=== PATIENT | male | born 1960 | race Caucasian/White ===

== ENCOUNTER 2016-11-20 08:18 | Day surgery (SDC) | payer BC, OTHER ==
[~2016-11-20 08:18] MED LIST: Bupivacaine 25%/EPINEPHrine/PF 30 ML ONE
[2016-11-20] MEDS ORDERED: Lactated Ringers 1,000 ML IV SCH ×2 (09:00→10:00)
--- NOTE | 2016-11-20 09:00 | PCM.PREANE ---
Preanesthetic Assessment - Anesthesia/Transfusion/Family Hx Anesthesia History: Prior Anesthesia Without Reaction Family History of Anesthesia Reaction: No Transfusion History: No Prior Transfusion(s) Intubation History: Unknown - Review of Systems General: No Symptoms Pulmonary: No Symptoms Cardiovascular: No Symptoms Gastrointestinal: No Symptoms Neurological: No Symptoms Other: Reports: None - Physical Assessment O2 Sat by Pulse Oximetry: 95 Respiratory Rate: 16 Vital Signs: Last Vital Signs Temp 36.2 C 11/20/16 08:50 Pulse 53 L 11/20/16 08:50 Resp 16 11/20/16 08:50 BP 140/64 11/20/16 08:50 Pulse Ox 95 11/20/16 08:50 Height: 1.78 m Weight: 117.934 kg ASA Class: 3 Mental Status: Alert & Oriented x3 Airway Class: Mallampati = 2 Dentition: Reports: Normal Dentition, Davie(s) (few, none at the front) Thyro-Mental Finger Breadths: 3 Mouth Opening Finger Breadths: 2 ROM/Head Extension: Full Lungs: Clear to Auscultation, Normal Respiratory Effort Cardiovascular: Regular Rate, Regular Rhythm - Allergies Allergies/Adverse Reactions: Allergies Allergy/AdvReac Type Severity Reaction Status Date / Time No Known Allergies Allergy Verified 11/17/16 13:03 - Blood Blood Available: No - Anesthesia Plan Pre-Op Medication Ordered: None - Acknowledgements Anesthesia Type Planned: MAC Pt an Appropriate Candidate for the Planned Anesthesia: Yes Alternatives and Risks of Anesthesia Discussed w Pt/Guardian: Yes Pt/Guardian Understands and Agrees with Anesthesia Plan: Yes PreAnesthesia Questionnaire HEENT History: Reports: Other (See Below) Other HEENT History: wears glasses, has eddie hearing aides but does not wear them Cardiovascular History: Reports: High Cholesterol, Hypertension Respiratory History: Reports: Sleep Apnea Other Respiratory History: recently diagnosed with mesothelioma, uses CPAP Gastrointestinal History: Reports: GERD Musculoskeletal History: Reports: Back Pain, Chronic, Osteoarthritis, Other ( See Below) (right rotator cuff tear) Endocrine/Metabolic History: Reports: Obesity/BMI 30+ - Past Surgical History Head Surgeries/Procedures: Reports: None Male Surgical History: Reports: Vasectomy Dermatological Surgical History: Reports: Other (See Below) (I@D of neck abscess ) - SUBSTANCE USE Smoking Status *Q: Current Every Day Smoker Tobacco Use Within Last Twelve Months: Cigarettes Days Per Week of Alcohol Use: 7 Number of Drinks Per Day: 2 Total Drinks Per Week: 14 Recreational Drug Use History: No - HOME MEDS Home Medications: Home Meds Aspirin [Grant Aspirin] 81 mg PO DAILY 11/17/16 [History] Cyanocobalamin (Vitamin B-12) [Vitamin B-12] 1 tab PO DAILY 11/17/16 [History] Doxazosin [Cardura] 4 mg PO DAILY 11/17/16 [History] Gabapentin [Neurontin] 300 mg PO BID 11/17/16 [History] Glucosamine/D3/Boswellia Alejandra [Osteo Bi-Flex Tablet] 1 tab PO DAILY 11/17/16 [ History] Losartan/Hydrochlorothiazide [Losartan-HCTZ 100-25 MG] 1 tab PO DAILY 11/17/16 [ History] Naproxen Sodium [Aleve] 2 tab PO BID 11/17/16 [History] Simvastatin [Zocor] 40 mg PO DAILY 11/17/16 [History] - CURRENT (IN HOUSE) MEDS Current Meds: Current Medications Hydrocodone Bitart/Acetaminophen ([place] 325-5 Mg) 1 tab PO Q4H PRN PRN Reason: Pain Bupivacaine HCl/Epinephrine Bitart (Marcaine 0.25%/Epinephrine 1:200,000) 10 ml INJECT ONETIME ONE Stop: 11/20/16 10:01 Cefazolin Sodium/Dextrose 2 gm (/ Premix) 50 mls @ 100 mls/hr IV ONETIME ONE Stop: 11/20/16 10:29 Lactated Ringer's (Ringers, Lactated) 1,000 mls @ 125 mls/hr IV ASDIRECTED [facility] Discontinued Medications Lactated Ringer's (Ringers, Lactated) 1,000 mls @ 125 mls/hr IV ASDIRECTED [facility] Bupivacaine HCl/Epinephrine Bitart (Sensorc Mpf 0.25%-Epi [id number]) Confirm Administered Dose 30 mls @ as directed .ROUTE .STK-MED ONE Stop: 11/20/16 07:21
[2016-11-20] MEDS ORDERED: Lidocaine 2% 5 ML SDV ONE (09:36)
[2016-11-20] MEDS ORDERED: Midazolam 1 MG/ML 2 ML SDV ONE (09:36)
[2016-11-20] MEDS ORDERED: Propofol 200 MG/20 ML SDV ONE (09:36)
[2016-11-20] MEDS ORDERED: fentaNYL 100 MCG/2 ML SDV ONE (09:36)
[2016-11-20] MEDS ORDERED: Acetaminophen/HYDROcodone 325-5 MG Tab PO PRN (10:00)
[2016-11-20] MEDS ORDERED: Bupivacaine 0.25%/EPINEPHrine 1:200,000 10 ML SDV INJECT ONE (10:00)
[2016-11-20] MEDS ORDERED: ceFAZolin 2 GM in Premix Bag 1 BAG IV ONE (10:00)
--- NOTE | 2016-11-20 12:36 | PCM.OPNOTE ---
- General Post-Op/Procedure Note Date of Surgery/Procedure: 11/20/16 Operative Procedure(s): left carpal tunnel release Pre Op Diagnosis: left carpal tunnel syndrome Post-Op Diagnosis: Same Anesthesia Technique: Local, MAC Primary Surgeon: Veena Dorman Receptionist Secretary: Lisa Cohen Complications: None Condition: Good Free Text/Narrative:: Intake & Output 11/19/16 11/20/16 11/20/16 23:59 07:59 15:59 Intake Total 900 Balance 900 [id number]
[2016-11-20 12:59] VITALS: BP 96/60
--- NOTE | 2016-11-20 18:50 | OR ---
SURGEON: KARTHIK SHRESTHA MD DATE OF PROCEDURE: 11/20/2016 PREOPERATIVE DIAGNOSIS: Left carpal tunnel syndrome. POSTOPERATIVE DIAGNOSIS: Left carpal tunnel syndrome. PROCEDURE: Left carpal tunnel release. INDICATIONS: The patient is seen today in evaluation for left carpal tunnel syndrome. Risks and benefits of left carpal tunnel release were discussed with him and he was in agreement to proceed. Risks were including, but not limited to, bleeding, infection, damage to underlying or overlying structures, possible need for future interventions. PROCEDURE IN DETAIL: After informed consent was obtained and placed on the chart, the patient was brought to the operating theater and laid in the supine position. After adequate local MAC anesthetic was obtained, the area was prepped and draped and a time-out was completed to confirm side and site. Attention was then paid to exsanguination of the arm and insufflation of the tourniquet to 200 mmHg and dissection of the transverse carpal ligament using a 15 blade. Dissection was carried through the skin and subcutaneous tissues until reach of the ligament and dissection was then carried distally and proximally using Littler scissor under direct visualization. Once adequately released, the area was irrigated and the skin was closed using a 5-0 nylon stitch in a horizontal mattress fashion. Once adequately closed, the wound was dressed with Xeroform, fluff, Kerlix gauze dressing, and a 2-inch Everton wrap. Tourniquet was deflated at the end of the case and all counts of needles were correct at the end the case. FOLLOWUP INSTRUCTIONS: The patient will see us in clinic in approximately 10-14 days, sooner if any problems, questions, or concerns and was given a prescription for pain control. RUDOLPH / LOGAN /[id number]
== END 2016-11-20 11:50 | disposition home or self-care (01) ==
LOC: MW.SDS 08:18
PROVIDERS: ATTEND Plastic Surgery
DX: G56.02 Carpal tunnel syndrome, left upper limb (principal); I10 Essential (primary) hypertension; E78.00 Pure hypercholesterolemia, unspecified; G47.30 Sleep apnea, unspecified; K21.9 Gastro-esophageal reflux disease without esophagitis; E66.9 Obesity, unspecified; Z68.30 Body mass index [BMI] 30.0-30.9, adult; F17.210 Nicotine dependence, cigarettes, uncomplicated; Z98.52 Vasectomy status; Z79.82 Long term (current) use of aspirin; Z79.899 Other long term (current) drug therapy
CPT/HCPCS: 64721; J2250; J3010; J7120; 01810; J2704

== ENCOUNTER 2020-12-08 21:40 | Observation (INO) | payer BC, MEDICARE ==
[2020-12-08] MEDS ORDERED: Sodium Chloride 0.9% 10 ML Syringe FLUSH PRN (21:42)
[2020-12-08] MEDS ORDERED: Sodium Chloride 0.9% 2.5 ML Syringe FLUSH PRN (21:42)
[2020-12-08] MEDS ORDERED: Nitroglycerin 0.4 MG Tab.SL ONE (21:53)
[2020-12-08] MEDS ORDERED: Aspirin 81 MG Tab.Chew ONE (21:54)
[2020-12-08] MEDS ORDERED: Aspirin 81 MG Tab.Chew PO STA (21:59)
--- NOTE | 2020-12-08 22:01 | EDM.PDOC ---
ED HPI GENERAL MEDICAL PROBLEM - General Chief Complaint: Cardiovascular Problem Stated Complaint: CHEST TIGHTNESS,LIGHT HEADED Time Seen by Provider: 12/08/20 21:41 Source of Information: Reports: Patient History Limitations: Reports: No Limitations - History of Present Illness INITIAL COMMENTS - FREE TEXT/NARRATIVE: 60-year-old male with history of CHF, HTN, HLD, asbestosis, remote smoker presents with chest pain. He was watching TV an hour ago and felt lightheaded with sweats and started having anterior chest tightness rating 4/10. Associated with shortness of breath and sweats. Currently he is chest pain-free rated 0/10. He felt so lightheaded that he wanted to pass out. ROS: A 10-point review of systems, other than pertinent positives and negatives as stated per HPI, is otherwise negative Past medical history: No additional pertinent history Past Surgical history: No additional pertinent history Social history: No additional pertinent history Family history: No additional pertinent history PHYSICAL EXAM General: AOx4, GCS = 15, No distress bmi:42 HEENT: dry mucous membrane Neck: supple, no meningismus, no Kernig or Brudzinski Cardiac: S1S2 RRR Respiratory: CTAB, no crackles or rales, no wheezing Abdomen: Soft, nontender, no rebound or guarding, nondistended, no pulsatile mass. Back: nontender Musculoskeletal: NVI distally, no deformity Neuro: No focal deficits, CN 2 - 12 WNL. - Related Data Allergies Allergy/AdvReac Type Severity Reaction Status Date / Time No Known Allergies Allergy Verified 12/08/20 21:43 Home Meds: Home Meds Aspirin [Howell Aspirin EC] 81 mg PO DAILY 11/17/16 [History] Cyanocobalamin (Vitamin B-12) [Vitamin B-12] 1 tab PO DAILY 11/17/16 [History] Doxazosin [Cardura] 4 mg PO DAILY 11/17/16 [History] Gabapentin [Neurontin] 300 mg PO BID 11/17/16 [History] Glucosamine/D3/Boswellia Alejandra [Osteo Bi-Flex Tablet] 1 tab PO DAILY 11/17/16 [History] Naproxen Sodium [Aleve] 2 tab PO BID 11/17/16 [History] Simvastatin [Zocor] 40 mg PO DAILY 11/17/16 [History] Furosemide [Lasix] 20 mg PO DAILY 12/08/20 [History] Sacubitril/Valsartan [Entresto 24 mg-26 mg Tablet] 24 - 26 mg PO DAILY 12/08/20 [History] Spironolactone [Aldactone] 25 mg PO DAILY 12/08/20 [History] carvediloL [Carvedilol] 6.25 mg PO 12/08/20 [History] Past Medical History HEENT History: Reports: Other (See Below) Other HEENT History: wears glasses, has eddie hearing aides but does not wear them Cardiovascular History: Reports: High Cholesterol, Hypertension Respiratory History: Reports: Sleep Apnea Other Respiratory History: recently diagnosed with mesothelioma, uses CPAP Gastrointestinal History: Reports: GERD Musculoskeletal History: Reports: Back Pain, Chronic, Osteoarthritis, Other (See Below) (right rotator cuff tear) Endocrine/Metabolic History: Reports: Obesity/BMI 30+ - Past Surgical History Head Surgeries/Procedures: Reports: None Male Surgical History: Reports: Vasectomy Dermatological Surgical History: Reports: Other (See Below) (I@D of neck abscess) ED ROS GENERAL - Review of Systems Review Of Systems: See Below (see dictation) ED EXAM, GENERAL - Physical Exam Exam: See Below (see dictation) #1 Interpretation EKG Interpretation Comments: Heart rate = 77 bpm, normal sinus rhythm, ST depression in 1, aVL, 1mm ST elevation in II, III, aVF. Normal QRS interval. EKG and rhythm strip interpreted by me at [id number] Course - Vital Signs Last Recorded V/S: Last Vital Signs Temp 97.4 F 12/08/20 21:44 Pulse 74 12/08/20 21:44 Resp 16 12/08/20 21:44 BP 121/71 12/08/20 21:44 Pulse Ox 96 12/08/20 21:44 - Orders/Labs/Meds Orders: Active Orders 24 hr Category Date Time Status Cardiac Monitoring [RC] . DIRECTED Care 12/08/20 21:42 Active Pulse Oximetry [RC] ASDIRECTED Care 12/08/20 21:42 Active Sodium Chloride 0.9% [Saline Flush] Med 12/08/20 21:42 Active 10 ml FLUSH ASDIRECTED PRN Sodium Chloride 0.9% [Saline Flush] Med 12/08/20 21:42 Active 2.5 ml FLUSH ASDIRECTED PRN Saline Lock Insert [OM.PC] Stat Oth 12/08/20 21:42 Ordered Medication Orders Sodium Chloride (Sodium Chloride 0.9% 10 Ml Syringe) 10 ml FLUSH ASDIRECTED PRN PRN Reason: Keep Vein Open Sodium Chloride (Sodium Chloride 0.9% 2.5 Ml Syringe) 2.5 ml FLUSH ASDIRECTED PRN PRN Reason: Keep Vein Open Labs: Laboratory Tests 12/08/20 12/08/20 12/08/20 Range/Units 22:00 22:00 22:00 WBC 9.06 (4.0-11.0) K/uL RBC 4.95 (4.50-5.90) M/uL Hgb 14.2 (13.0-17.0) g/dL Hct 42.3 (38.0-50.0) % MCV 85.5 (80.0-98.0) fL MCH 28.7 (27.0-32.0) pg MCHC 33.6 (31.0-37.0) g/dL RDW Std Deviation 44.7 (28.0-62.0) fl RDW Coeff of Alexandra 15 (11.0-15.0) % Plt Count 237 (150-400) K/uL MPV 11.20 (7.40-12.00) fL Neut % (Auto) 65.9 (48.0-80.0) % Lymph % (Auto) 22.7 (16.0-40.0) % [place] % (Auto) 8.9 (0.0-15.0) % Eos % (Auto) 2.2 (0.0-7.0) % Baso % (Auto) 0.3 (0.0-1.5) % Neut # (Auto) 6.0 H (1.4-5.7) K/uL Lymph # (Auto) 2.1 (0.6-2.4) K/uL Screven # (Auto) 0.8 (0.0-0.8) K/uL Eos # (Auto) 0.2 (0.0-0.7) K/uL Baso # (Auto) 0.0 (0.0-0.1) K/uL Nucleated RBC % 0.0 /100WBC Nucleated RBCs # 0 K/uL Sodium 142 (136-148) mmol/L Potassium 5.0 (3.5-5.1) mmol/L Chloride 105 (98-107) mmol/L Carbon Dioxide 27.5 (21.0-32.0) mmol/L BUN 23 H (7.0-18.0) mg/dL Creatinine 1.2 (0.8-1.3) mg/dL Est Cr Clr Drug Dosing 67.59 mL/min Estimated GFR (MDRD) > 60.0 ml/min Glucose 152 H (74-106) mg/dL Calcium 8.6 (8.5-10.1) mg/dL Total Bilirubin 0.3 (0.2-1.0) mg/dL AST 27 (15-37) IU/L ALT 40 (14-63) IU/L Alkaline Phosphatase 88 (46-116) U/L Troponin I (0.000-0.056) ng/mL B-Natriuretic Peptide 29 (<100) PG/ML Total Protein 6.4 (6.4-8.2) g/dL Albumin 3.0 L (3.4-5.0) g/dL Globulin 3.4 (2.6-4.0) g/dL Albumin/Globulin Ratio 0.9 (0.9-1.6) SARS-CoV-2 RNA (SAAD) (NEGATIVE) 12/08/20 12/08/20 Range/Units 22:00 22:01 WBC (4.0-11.0) K/uL RBC (4.50-5.90) M/uL Hgb (13.0-17.0) g/dL Hct (38.0-50.0) % MCV (80.0-98.0) fL MCH (27.0-32.0) pg MCHC (31.0-37.0) g/dL RDW Std Deviation (28.0-62.0) fl RDW Coeff of Alexandra (11.0-15.0) % Plt Count (150-400) K/uL MPV (7.40-12.00) fL Neut % (Auto) (48.0-80.0) % Lymph % (Auto) (16.0-40.0) % [place] % (Auto) (0.0-15.0) % Eos % (Auto) (0.0-7.0) % Baso % (Auto) (0.0-1.5) % Neut # (Auto) (1.4-5.7) K/uL Lymph # (Auto) (0.6-2.4) K/uL Screven # (Auto) (0.0-0.8) K/uL Eos # (Auto) (0.0-0.7) K/uL Baso # (Auto) (0.0-0.1) K/uL Nucleated RBC % /100WBC Nucleated RBCs # K/uL Sodium (136-148) mmol/L Potassium (3.5-5.1) mmol/L Chloride (98-107) mmol/L Carbon Dioxide (21.0-32.0) mmol/L BUN (7.0-18.0) mg/dL Creatinine (0.8-1.3) mg/dL Est Cr Clr Drug Dosing mL/min Estimated GFR (MDRD) ml/min Glucose (74-106) mg/dL Calcium (8.5-10.1) mg/dL Total Bilirubin (0.2-1.0) mg/dL AST (15-37) IU/L ALT (14-63) IU/L Alkaline Phosphatase (46-116) U/L Troponin I < 0.050 (0.000-0.056) ng/mL B-Natriuretic Peptide (<100) PG/ML Total Protein (6.4-8.2) g/dL Albumin (3.4-5.0) g/dL Globulin (2.6-4.0) g/dL Albumin/Globulin Ratio (0.9-1.6) SARS-CoV-2 RNA (SAAD) NEGATIVE (NEGATIVE) Meds: Medications Generic Name Dose Route Start Last Admin Trade Name Freq PRN Reason Stop Dose Admin Sodium Chloride 10 ml 12/08/20 21:42 Sodium Chloride 0.9% 10 Ml Syringe FLUSH ASDIRECTED PRN Keep Vein Open Sodium Chloride 2.5 ml 12/08/20 21:42 Sodium Chloride 0.9% 2.5 Ml Syringe FLUSH ASDIRECTED PRN Keep Vein Open Discontinued Medications Generic Name Dose Route Start Last Admin Trade Name Adali PRN Reason Stop Dose Admin Aspirin Confirm 12/08/20 21:54 12/08/20 21:58 Aspirin 81 Mg Tab.Chew Administered 12/08/20 21:55 324 mg Dose Administration 324 mg .ROUTE .STK-MED ONE Aspirin 324 mg 12/08/20 21:59 12/08/20 22:05 Aspirin 81 Mg Tab.Chew PO 12/08/20 22:00 Not Given DAILY STA Nitroglycerin Confirm 12/08/20 21:53 12/08/20 22:12 Nitroglycerin 0.4 Mg Tab.Sl Administered 12/08/20 21:54 Not Given Dose 0.4 mg .ROUTE .STK-MED ONE - Re-Assessments/Exams Free Text/Narrative Re-Assessment/Exam: 12/08/20 22:02 Case discussed with script girl Dr. Maxi Dailey at [facility], he personally reviewed the EKG and was informed of the clinical history. He does not think this patient require emergent transfer or fuel injection servicer activation at this time. He does not think patient is having a STEMI. 12/08/20 23:[address] Merlos, who agrees to admit patient. The hospitalist's documentation supersedes all other documentation on this patient with regard to any conflicts or discrepancies from this point forward. Any emergency conditions have been treated to the ability of the ED prior to admission. Departure - Departure Time of Disposition: 23:56 Disposition: Refer to Observation Condition: Good Clinical Impression: Chest pain Instructions: Nonspecific Chest Pain, Adult Referrals: Trevor Ashby MD [Primary Care Provider] - Forms: ED Department Discharge Sepsis Event Note (ED) - Evaluation Sepsis Screening Result: No Definite Risk - Focused Exam Vital Signs: Vital Signs Temp Pulse Resp BP Pulse Ox 12/08/20 21:44 97.4 F 74 16 121/71 96 - My Orders Last 24 Hours: My Active Orders 12/08/20 21:42 Cardiac Monitoring [RC] . DIRECTED Pulse Oximetry [RC] ASDIRECTED Sodium Chloride 0.9% [Saline Flush] 10 ml FLUSH ASDIRECTED PRN Sodium Chloride 0.9% [Saline Flush] 2.5 ml FLUSH ASDIRECTED PRN Saline Lock Insert [OM.PC] Stat - Assessment/Plan Last 24 Hours: My Active Orders 12/08/20 21:42 Cardiac Monitoring [RC] . DIRECTED Pulse Oximetry [RC] ASDIRECTED Sodium Chloride 0.9% [Saline Flush] 10 ml FLUSH ASDIRECTED PRN Sodium Chloride 0.9% [Saline Flush] 2.5 ml FLUSH ASDIRECTED PRN Saline Lock Insert [OM.PC] Stat
[2020-12-08 22:30] LABS: BLOOD UREA NITROGEN,BUN 23 mg/dL (7.0-18.0); CARBON DIOXIDE,CO2 27.5 mmol/L (21.0-32.0); CHLORIDE,CL 105 mmol/L (98-107); GLUCOSE RANDOM 152 mg/dL (74-106); SODIUM,NA 142 mmol/L (136-148)
--- NOTE | 2020-12-08 22:41 | CR ---
Indication: Chest pain. Technique: AP portable view of the chest. Comparison: None Findings: Heart is borderline in size. The lungs are clear. No infiltrate, pleural effusion, or pneumothorax is identified. Impression: No acute cardiopulmonary process Dictated by Deborah Torres MD @ 12/08/2020 10:40:37 PM (Electronically Signed)
[2020-12-09 11:53] VITALS: BP 112/57; PULSE 46
--- NOTE | 2020-12-09 13:08 | PCM.HP.2 ---
H&P History of Present Illness - General Date of Service: 12/09/20 Admit Problem/Dx: Admission Diagnosis/Problem Admission Diagnosis/Problem Chest pain - History of Present Illness Initial Comments - Free Text/Narative: The patient is a 60-year-old male, with a significant past medical history of congestive heart failure, hypertension, HLD, asbestosis, prior smoking history, hyperlipidemia, mesothelioma, GERD, and osteoarthritis, who was admitted for observation for chest pain. Yesterday afternoon the patient started to have substernal chest pain while watching TV, which is 4 out of 10 intensity, sharp in nature, and nonradiating. Associated with chest pain was lightheadedness, diaphoresis, and shortness of breath. The patient has had similar symptoms in the past and had to come to the hospital for observation. Due to the patient's cardiac history he is followed by Dr. Dailey and Dr. Piper patel, both cardiologists, and has appointments every 3 to 6 months. Upon further interview, the patient denies palpitations, abdominal pain, orthopnea, headache, dizziness, weakness, and any issues with urination and/or defecation. With respect to social history, the patient has a [id number] history of smoking, but quit 5 years ago, the patient does not consume alcohol or use recreational drugs. Family history is significant for hypertension in both his mother and father. On CBC, white blood cell count was 9.06, hemoglobin was 14.2, hematocrit was 42.3, and platelet count was 237. On CMP, sodium was 142, potassium was 5, chloride was 105, carbon dioxide was 27.5, BUN was 23, creatinine was 1.2, and glucose was 152. Troponins were negative on three different measurements, less than 0.050 EKG showed a heart rate of 77 bpm, normal sinus rhythm, ST depression in leads I, ST elevation in leads II, III, aVF While in the emergency department the patient had a full cardiac work-up, a william st x-ray showed no acute cardiopulmonary process, he had a monitoring manager placed, he was given aspirin 324 mg per oral route once, and nitroglycerin 0.4 mg via sublingual route. - Related Data Allergies/Adverse Reactions: Allergies Allergy/AdvReac Type Severity Reaction Status Date / Time No Known Allergies Allergy Verified 12/09/20 02:28 Home Medications: Home Meds Aspirin [Broxton Aspirin EC] 81 mg PO DAILY 11/17/16 [History] Cyanocobalamin (Vitamin B-12) [Vitamin B-12] 1 tab PO DAILY 11/17/16 [History] Doxazosin [Cardura] 4 mg PO DAILY 11/17/16 [History] Gabapentin [Neurontin] 300 mg PO BID 11/17/16 [History] Glucosamine/D3/Boswellia Alejandra [Osteo Bi-Flex Tablet] 1 tab PO DAILY 11/17/16 [History] Naproxen Sodium [Aleve] 2 tab PO BID 11/17/16 [History] Simvastatin [Zocor] 40 mg PO DAILY 11/17/16 [History] Furosemide [Lasix] 20 mg PO DAILY 12/08/20 [History] Sacubitril/Valsartan [Entresto 24 mg-26 mg Tablet] 24 - 26 mg PO DAILY 12/08/20 [History] Spironolactone [Aldactone] 25 mg PO DAILY 12/08/20 [History] carvediloL [Carvedilol] 6.25 mg PO 12/08/20 [History] Past Medical History HEENT History: Reports: Other (See Below) Other HEENT History: wears glasses, has eddie hearing aides but does not wear them Cardiovascular History: Reports: High Cholesterol, Hypertension Other Cardiovascular History: congestive heart failure Respiratory History: Reports: Sleep Apnea Other Respiratory History: recently diagnosed with mesothelioma, uses CPAP Gastrointestinal History: Reports: GERD Musculoskeletal History: Reports: Back Pain, Chronic, Osteoarthritis, Other (See Below) Endocrine/Metabolic History: Reports: Obesity/BMI 30+ - Past Surgical History Head Surgeries/Procedures: Reports: None Male Surgical History: Reports: Vasectomy Dermatological Surgical History: Reports: Other (See Below) Social & Family History - Tobacco Use Tobacco Use Status *Q: Former Tobacco User Used Tobacco, but Quit: Yes Month/Year Tobacco Last Used: 40 - Caffeine Use Caffeine Use: Reports: Coffee - Recreational Drug Use Recreational Drug Use: No H&P Review of Systems - Review of Systems: Review Of Systems: See Below General: Reports: Diaphoresis. Denies: Fever, Chills, Fatigue HEENT: Denies: Headaches, Sore Throat, Visual Changes Pulmonary: Reports: Shortness of Breath. Denies: Wheezing, Cough Cardiovascular: Reports: Chest Pain. Denies: Palpitations, Dyspnea on Exertion, Orthopnea Gastrointestinal: Denies: Abdominal Pain, Constipation, Diarrhea Genitourinary: Denies: Dysuria Neurological: Denies: Dizziness Exam - Exam Exam: See Below - Vital Signs Vital Signs: Last Vital Signs Temp 97.4 F 12/09/20 11:40 Pulse 46 L 12/09/20 11:40 Resp 17 12/09/20 11:40 BP 112/57 L 12/09/20 11:40 Pulse Ox 94 L 12/09/20 11:40 Weight: 297 lb 14.4 oz - Exam General: Alert, Oriented, Cooperative HEENT: Mucosa Moist & [place] Neck: No: Carotid Bruit Lungs: Clear to Auscultation, Normal Respiratory Effort Cardiovascular: Regular Rate, Regular Rhythm GI/Abdominal Exam: Normal Bowel Sounds, Soft, Non-Tender Extremities: No Pedal Edema - Patient Data Lab Results Last 24 hrs: Laboratory Results - last 24 hr 12/08/20 12/08/20 12/08/20 Range/Units 22:00 22:00 22:00 WBC 9.06 (4.0-11.0) K/uL RBC 4.95 (4.50-5.90) M/uL Hgb 14.2 (13.0-17.0) g/dL Hct 42.3 (38.0-50.0) % MCV 85.5 (80.0-98.0) fL MCH 28.7 (27.0-32.0) pg MCHC 33.6 (31.0-37.0) g/dL RDW Std Deviation 44.7 (28.0-62.0) fl RDW Coeff of Alexandra 15 (11.0-15.0) % Plt Count 237 (150-400) K/uL MPV 11.20 (7.40-12.00) fL Neut % (Auto) 65.9 (48.0-80.0) % Lymph % (Auto) 22.7 (16.0-40.0) % [place] % (Auto) 8.9 (0.0-15.0) % Eos % (Auto) 2.2 (0.0-7.0) % Baso % (Auto) 0.3 (0.0-1.5) % Neut # (Auto) 6.0 H (1.4-5.7) K/uL Lymph # (Auto) 2.1 (0.6-2.4) K/uL [place] # (Auto) 0.8 (0.0-0.8) K/uL Eos # (Auto) 0.2 (0.0-0.7) K/uL Baso # (Auto) 0.0 (0.0-0.1) K/uL Nucleated RBC % 0.0 /100WBC Nucleated RBCs # 0 K/uL Sodium 142 (136-148) mmol/L Potassium 5.0 (3.5-5.1) mmol/L Chloride 105 (98-107) mmol/L Carbon Dioxide 27.5 (21.0-32.0) mmol/L BUN 23 H (7.0-18.0) mg/dL Creatinine 1.2 (0.8-1.3) mg/dL Est Cr Clr Drug Dosing 67.59 mL/min Estimated GFR (MDRD) > 60.0 ml/min Glucose 152 H (74-106) mg/dL Calcium 8.6 (8.5-10.1) mg/dL Total Bilirubin 0.3 (0.2-1.0) mg/dL AST 27 (15-37) IU/L ALT 40 (14-63) IU/L Alkaline Phosphatase 88 (46-116) U/L Troponin I (0.000-0.056) ng/mL B-Natriuretic Peptide 29 (<100) PG/ML Total Protein 6.4 (6.4-8.2) g/dL Albumin 3.0 L (3.4-5.0) g/dL Globulin 3.4 (2.6-4.0) g/dL Albumin/Globulin Ratio 0.9 (0.9-1.6) SARS-CoV-2 RNA (SAAD) (NEGATIVE) 12/08/20 12/08/20 12/09/20 Range/Units 22:00 22:01 04:00 WBC (4.0-11.0) K/uL RBC (4.50-5.90) M/uL Hgb (13.0-17.0) g/dL Hct (38.0-50.0) % MCV (80.0-98.0) fL MCH (27.0-32.0) pg MCHC (31.0-37.0) g/dL RDW Std Deviation (28.0-62.0) fl RDW Coeff of Alexandra (11.0-15.0) % Plt Count (150-400) K/uL MPV (7.40-12.00) fL Neut % (Auto) (48.0-80.0) % Lymph % (Auto) (16.0-40.0) % [place] % (Auto) (0.0-15.0) % Eos % (Auto) (0.0-7.0) % Baso % (Auto) (0.0-1.5) % Neut # (Auto) (1.4-5.7) K/uL Lymph # (Auto) (0.6-2.4) K/uL Bethel # (Auto) (0.0-0.8) K/uL Eos # (Auto) (0.0-0.7) K/uL Baso # (Auto) (0.0-0.1) K/uL Nucleated RBC % /100WBC Nucleated RBCs # K/uL Sodium (136-148) mmol/L Potassium (3.5-5.1) mmol/L Chloride (98-107) mmol/L Carbon Dioxide (21.0-32.0) mmol/L BUN (7.0-18.0) mg/dL Creatinine (0.8-1.3) mg/dL Est Cr Clr Drug Dosing mL/min Estimated GFR (MDRD) ml/min Glucose (74-106) mg/dL Calcium (8.5-10.1) mg/dL Total Bilirubin (0.2-1.0) mg/dL AST (15-37) IU/L ALT (14-63) IU/L Alkaline Phosphatase (46-116) U/L Troponin I < 0.050 < 0.050 (0.000-0.056) ng/mL B-Natriuretic Peptide (<100) PG/ML Total Protein (6.4-8.2) g/dL Albumin (3.4-5.0) g/dL Globulin (2.6-4.0) g/dL Albumin/Globulin Ratio (0.9-1.6) SARS-CoV-2 RNA (SAAD) NEGATIVE (NEGATIVE) 12/09/20 Range/Units 10:03 WBC (4.0-11.0) K/uL RBC (4.50-5.90) M/uL Hgb (13.0-17.0) g/dL Hct (38.0-50.0) % MCV (80.0-98.0) fL MCH (27.0-32.0) pg MCHC (31.0-37.0) g/dL RDW Std Deviation (28.0-62.0) fl RDW Coeff of Alexandra (11.0-15.0) % Plt Count (150-400) K/uL MPV (7.40-12.00) fL Neut % (Auto) (48.0-80.0) % Lymph % (Auto) (16.0-40.0) % [place] % (Auto) (0.0-15.0) % Eos % (Auto) (0.0-7.0) % Baso % (Auto) (0.0-1.5) % Neut # (Auto) (1.4-5.7) K/uL Lymph # (Auto) (0.6-2.4) K/uL [place] # (Auto) (0.0-0.8) K/uL Eos # (Auto) (0.0-0.7) K/uL Baso # (Auto) (0.0-0.1) K/uL Nucleated RBC % /100WBC Nucleated RBCs # K/uL Sodium (136-148) mmol/L Potassium (3.5-5.1) mmol/L Chloride (98-107) mmol/L Carbon Dioxide (21.0-32.0) mmol/L BUN (7.0-18.0) mg/dL Creatinine (0.8-1.3) mg/dL Est Cr Clr Drug Dosing mL/min Estimated GFR (MDRD) ml/min Glucose (74-106) mg/dL Calcium (8.5-10.1) mg/dL Total Bilirubin (0.2-1.0) mg/dL AST (15-37) IU/L ALT (14-63) IU/L Alkaline Phosphatase (46-116) U/L Troponin I < 0.050 (0.000-0.056) ng/mL B-Natriuretic Peptide (<100) PG/ML Total Protein (6.4-8.2) g/dL Albumin (3.4-5.0) g/dL Globulin (2.6-4.0) g/dL Albumin/Globulin Ratio (0.9-1.6) SARS-CoV-2 RNA (SAAD) (NEGATIVE) Result Diagrams: 12/08/20 22:00 12/08/20 22:00 Sepsis Event Note - Evaluation Sepsis Screening Result: No Definite Risk - Focused Exam Vital Signs: Vital Signs Temp Pulse Resp BP Pulse Ox 12/09/20 11:40 97.4 F 46 L 17 112/57 L 94 L 12/09/20 07:45 97 F 50 L 16 108/62 94 L 12/09/20 05:11 97 F 50 L 16 102/54 L 96 12/09/20 01:11 97.5 F 55 L 16 115/60 95 - Problem List (1) Chest pain SNOMED Code(s): 03798258 ICD Code: R07.9 - CHEST PAIN, UNSPECIFIED Status: Acute Current Visit: Y es (2) Lightheaded SNOMED Code(s): 660083447 ICD Code: R42 - DIZZINESS AND GIDDINESS Status: Acute Current Visit: Yes Problem List Initiated/Reviewed/Updated: Yes Orders Last 24hrs: Active Orders 24 hr Category Date Time Status Patient Status [ADT] Routine ADT 12/08/20 23:57 Active Cardiac Monitoring [RC] Q8H Care 12/08/20 21:42 Active Pulse Oximetry [RC] ASDIRECTED Care 12/08/20 21:42 Active Ready for Discharge [RC] PER UNIT ROUTINE Care 12/09/20 11:57 Ordered Telemetry Monitoring [Cardiac Monitoring] [RC] . Care 12/09/20 00:52 Active DIRECTED Regular Diet [DIET] Diet 12/09/20 Breakfast Active Sodium Chloride 0.9% [Saline Flush] Med 12/08/20 21:42 Active 10 ml FLUSH ASDIRECTED PRN Sodium Chloride 0.9% [Saline Flush] Med 12/08/20 21:42 Active 2.5 ml FLUSH ASDIRECTED PRN Saline Lock Insert [OM.PC] Stat Oth 12/08/20 21:42 Ordered Medication Orders Sodium Chloride (Sodium Chloride 0.9% 10 Ml Syringe) 10 ml FLUSH ASDIRECTED PRN PRN Reason: Keep Vein Open Sodium Chloride (Sodium Chloride 0.9% 2.5 Ml Syringe) 2.5 ml FLUSH ASDIRECTED PRN PRN Reason: Keep Vein Open Assessment/Plan Comment:: Admit the patient for observation, vitals per unit routine, activity up ad jeremy., regular diet 1. Atypical chest pain -The patient presented with substernal chest pain and had a EKG done which showed ST depression in leads I, ST elevation in leads II, leads III, aVF. As a result nitroglycerin 0.4 mg sublingual was given. -Troponins were measured 3 different times, each time coming back negative with a result of less than 0.050. The patient was given aspirin 324 mg per oral route once. -The patient was admitted for observation and placed on a monitoring manager, and had a CBC and CMP done. -This morning the patient's chest pain had completely subsided and the lightheadedness he was feeling resolved. 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 Dailey on an outpatient basis. -The patient is stable and now ready to be discharged, he has been advised if he has chest pain, palpitations, shortness of breath, to return to the hospital. DISCHARGE PATIENT
== END 2020-12-09 12:30 | disposition home or self-care (01) ==
LOC: MW.ED 21:40 → MW.MS 23:57
PROVIDERS: ADMIT Internal Medicine; ATTEND Internal Medicine
DX: R07.9 Chest pain, unspecified (principal); I11.0 Hypertensive heart disease with heart failure; I50.9 Heart failure, unspecified; E78.5 Hyperlipidemia, unspecified; K21.9 Gastro-esophageal reflux disease without esophagitis; E78.00 Pure hypercholesterolemia, unspecified; E66.9 Obesity, unspecified; Z79.82 Long term (current) use of aspirin; Z87.891 Personal history of nicotine dependence; Z79.899 Other long term (current) drug therapy; Z20.822 Contact with and (suspected) exposure to COVID-19
CPT/HCPCS: 36415; 71045; 80053; 83880; 84484; 85025; 87635; 93005; 99285; A9270; G0378; U0002

== ENCOUNTER 2022-04-14 08:37 | Emergency (ER) | payer OTHER, MEDICARE ==
[2022-04-14] MEDS ORDERED: Atropine 0.1 MG/ML 10 ML Syringe IVPUSH ONE (08:45)
[2022-04-14 09:10] VITALS: BP 138/60; PULSE 26
[2022-04-14 09:38] LABS: CARBON DIOXIDE,CO2 25.2 mmol/L (21.0-32.0); POTASSIUM,K 4.4 mmol/L (3.5-5.1)
== END 2022-04-14 09:55 ==
LOC: MW.ED 08:37
DX: I44.2 Atrioventricular block, complete (principal); E78.00 Pure hypercholesterolemia, unspecified; I11.0 Hypertensive heart disease with heart failure; I50.9 Heart failure, unspecified; M19.90 Unspecified osteoarthritis, unspecified site; E66.9 Obesity, unspecified; Z68.41 Body mass index [BMI] 40.0-44.9, adult; Z79.82 Long term (current) use of aspirin; Z79.899 Other long term (current) drug therapy; Z20.822 Contact with and (suspected) exposure to COVID-19
CPT/HCPCS: 36415; 80053; 83735; 84443; 84484; 85025; 85610; 85730; 93005; 93010; 96374; 99285-25; 99291; J0461; U0002